=== PATIENT | male | born 1970 | race Two or more races ===

== ENCOUNTER 2024-02-14 09:48 | Emergency (ER) | payer OTHER ==
[2024-02-14 10:00] VITALS: PULSE 83; RESP 18; TEMP 97.7; BMI 37.1
[2024-02-14] MEDS ORDERED: MORPHINE SULFATE 2 MG/ML SYRINGE ONE (12:43)
[2024-02-14] MEDS: morphine CARPU-JECT 2 MG/1 ML DISP.SYRIN IM ONE (12:47)
[2024-02-14] MEDS ORDERED: DIPHTH,PERTUSS(ACELL),TET 0.5 ML DISP.SYRIN IM ONE (12:49)
[2024-02-14] MEDS: DIPHTH,PERTUSS(ACELL),TET 0.5 ML DISP.SYRIN IM ONE (12:52)
[2024-02-14] MEDS: morphine CARPU-JECT 2 MG/1 ML DISP.SYRIN IVPUSH ONE (13:09)
[2024-02-14 15:13] VITALS: BP 127/91
== END 2024-02-14 15:36 | disposition home or self-care (01) ==
LOC: JERFT 09:48
PROC: 3E023NZ Introduction of Analgesics, Hypnotics, Sedatives into Muscle, Percutaneous Approach (ICD-10-PCS; principal; 2024-02-14)
PROC: 3E0234Z Introduction of Serum, Toxoid and Vaccine into Muscle, Percutaneous Approach (ICD-10-PCS; 2024-02-14)
DX: S91.331A Puncture wound without foreign body, right foot, initial encounter (principal); W45.0XXA Nail entering through skin, initial encounter; Y99.0 Civilian activity done for income or pay; Z23 Encounter for immunization
CPT/HCPCS: 73630-TC-RT-FY; 90715; 99284-25